=== PATIENT | female | born 1935 | race Two or more races ===

== ENCOUNTER 2019-03-19 13:30 | Inpatient (IN) | payer OTHER ==
[~2019-03-19] VITALS: Ht 152.4 cm; Wt 81.6 kg
[~2019-03-19 13:30] MED LIST: LIDODERM30 EA TP; MEDROL4 MG PO; ORPH100T PO; PERCOCET 5/3251 TAB PO
[2019-03-19] MEDS ORDERED: PEPCID20 MG (13:56)
[2019-03-19] MEDS ORDERED: SIMVASTATIN20 MG (13:57)
[2019-03-19] MEDS ORDERED: LOSARTAN POTASS50 MG (13:57)
[2019-03-19] MEDS ORDERED: CLOPIDOGREL BIS75 MG (13:57)
[2019-03-19] MEDS ORDERED: MAXIMUM D310000 UNIT (13:58)
[2019-03-19] MEDS ORDERED: FOSAMAX70 MG (13:58)
[2019-03-19] MEDS ORDERED: MELATONIN5 M1 (13:58)
[2019-03-19] MEDS ORDERED: GABAPENTIN100 MG (13:58)
[2019-03-19] MEDS ORDERED: VITAMIN B-121000 MCG (13:59)
[2019-03-19] MEDS ORDERED: REFRESH OPTIVE10 ML (13:59)
[2019-03-19] MEDS ORDERED: LUMIGAN2.5 M1 (14:00)
[2019-03-26] MEDS ORDERED: CLOPIDOGREL BIS75 MG PO (12:35)
[2019-03-26] MEDS ORDERED: LOSARTAN POTASS50 MG PO (12:36)
[2019-03-26] MEDS ORDERED: XOPENEX CO1.25 MG/0. IH (12:36)
[2019-03-26] MEDS ORDERED: GABAPENTIN100 MG PO (12:37)
[2019-03-26] MEDS ORDERED: SIMVASTATIN20 MG PO (12:37)
[2019-03-26] MEDS ORDERED: BUDESONIDE0.5 MG/2 M IH (12:37)
[2019-03-26] MEDS ORDERED: CARAFATE1 GM PO (12:38)
[2019-03-26] MEDS ORDERED: PANTOPRAZOLE SO40 MG PO (12:38)
[2019-03-26] MEDS ORDERED: PREDNISONE10 MG PO (12:40)
[2019-03-26] MEDS ORDERED: Neurin-Sl Tablet Sl SL (12:44)
[2019-03-27] MEDS ORDERED: PROTONIX40 MG (16:51)
== END 2019-03-26 16:24 | DRG 191 ==
LOC: ER 13:30 → MEDJ 03-20 00:47 → SEC-K 03-20 00:47 → MEDJ 03-20 14:44
PROVIDERS: ADMIT Internal Medicine
PROC: 3E0F7GC Introduction of Other Therapeutic Substance into Respiratory Tract, Via Natural or Artificial Opening (ICD-10-PCS; principal; 2019-03-20)
PROC: 4A033R1 Measurement of Arterial Saturation, Peripheral, Percutaneous Approach (ICD-10-PCS; 2019-03-25)
DX: J44.1 Chronic obstructive pulmonary disease with (acute) exacerbation (principal); J45.41 Moderate persistent asthma with (acute) exacerbation; N39.41 Urge incontinence; I10 Essential (primary) hypertension; I70.0 Atherosclerosis of aorta; R53.1 Weakness

== ENCOUNTER 2019-03-27 16:19 | Emergency (ER) | payer OTHER ==
[~2019-03-27] VITALS: Ht 152.4 cm; Wt 83.9 kg
[~2019-03-27 16:19] MED LIST changes: +BUDESONIDE0.5 MG/2 M IH; +CARAFATE1 GM PO; +CLOPIDOGREL BIS75 MG; +CLOPIDOGREL BIS75 MG PO; +FOSAMAX70 MG; +GABAPENTIN100 MG; +GABAPENTIN100 MG PO; +LOSARTAN POTASS50 MG; +LOSARTAN POTASS50 MG PO; +LUMIGAN2.5 M1; +MAXIMUM D310000 UNIT; +MELATONIN5 M1; +Neurin-Sl Tablet Sl SL; +PANTOPRAZOLE SO40 MG PO; +PEPCID20 MG; +PREDNISONE10 MG PO; +REFRESH OPTIVE10 ML; +SIMVASTATIN20 MG; +SIMVASTATIN20 MG PO; +VITAMIN B-121000 MCG; +XOPENEX CO1.25 MG/0. IH
[2019-03-27] MEDS ORDERED: PROTONIX40 MG (16:51)
== END 2019-03-27 23:50 | disposition home or self-care (01) ==
LOC: ER 16:19 → CPU-OBS 16:30 → ER 23:50
DX: J44.9 Chronic obstructive pulmonary disease, unspecified (principal); J90 Pleural effusion, not elsewhere classified; I70.0 Atherosclerosis of aorta; I11.9 Hypertensive heart disease without heart failure; N28.1 Cyst of kidney, acquired

== ENCOUNTER 2019-04-12 13:05 | Emergency (ER) | payer OTHER ==
[~2019-04-12] VITALS: Ht 165.1 cm; Wt 77.1 kg
[~2019-04-12 13:05] MED LIST changes: +PROTONIX40 MG
== END 2019-04-12 16:13 | disposition home or self-care (01) ==
LOC: ER 13:05
DX: R06.02 Shortness of breath (principal)

== ENCOUNTER 2019-05-14 19:06 | Emergency (ER) | payer OTHER | END 2019-05-15 12:27 | disposition home or self-care (01) | LOC: ER 19:06 | DX: I16.0 Hypertensive urgency (principal); I10 Essential (primary) hypertension; J44.9 Chronic obstructive pulmonary disease, unspecified; J45.998 Other asthma; I67.89 Other cerebrovascular disease; E86.0 Dehydration; R25.8 Other abnormal involuntary movements; R68.89 Other general symptoms and signs; R53.1 Weakness; Z77.22 Contact with and (suspected) exposure to environmental tobacco smoke (acute) (chronic) ==

== ENCOUNTER 2020-10-16 13:38 | Inpatient (IN) | payer OTHER ==
[~2020-10-16] VITALS: Ht 160 cm; Wt 95.3 kg
[2020-10-16] MEDS ORDERED: ALENDRONATE SOD70 MG PO (13:53)
[2020-10-16] MEDS ORDERED: PANTOPRAZOLE SO40 MG PO (13:53)
[2020-10-17] MEDS ORDERED: OMEPRAZOLE20 MG (14:43)
[2020-10-17] MEDS ORDERED: FAMOTIDINE20 MG (14:43)
[2020-10-17] MEDS ORDERED: SUCRALFATE1 GM (14:44)
[2020-10-17] MEDS ORDERED: ABANEU-SL TABL1 EACH (14:44)
== END 2020-10-24 13:30 | disposition home or self-care (01) | DRG 191 ==
LOC: ER 13:38 → MEDI 10-17 06:52
PROVIDERS: ADMIT Internal Medicine; ATTEND Internal Medicine
PROC: 3E0F73Z Introduction of Anti-inflammatory into Respiratory Tract, Via Natural or Artificial Opening (ICD-10-PCS; principal; 2020-10-17)
PROC: 3E0F7SF Introduction of Other Gas into Respiratory Tract, Via Natural or Artificial Opening (ICD-10-PCS; 2020-10-17)
PROC: 4A12X4Z Monitoring of Cardiac Electrical Activity, External Approach (ICD-10-PCS; 2020-10-17)
PROC: B24BYZZ Ultrasonography of Heart with Aorta using Other Contrast (ICD-10-PCS; 2020-10-17)
DX: J44.1 Chronic obstructive pulmonary disease with (acute) exacerbation (principal); J45.901 Unspecified asthma with (acute) exacerbation; J44.0 Chronic obstructive pulmonary disease with (acute) lower respiratory infection; J20.9 Acute bronchitis, unspecified; I10 Essential (primary) hypertension; Z20.822 Contact with and (suspected) exposure to COVID-19

== ENCOUNTER 2021-02-22 11:48 | Emergency (ER) | payer OTHER ==
[~2021-02-22] VITALS: Ht 152.4 cm; Wt 90.7 kg
[~2021-02-22 11:48] MED LIST changes: +ABANEU-SL TABL1 EACH; +ALENDRONATE SOD70 MG PO; +FAMOTIDINE20 MG; +OMEPRAZOLE20 MG; +SUCRALFATE1 GM
[2021-02-22] MEDS ORDERED: MEDROLPACK PO (17:12)
== END 2021-02-22 18:24 | disposition home or self-care (01) ==
LOC: ER 11:48
DX: R06.02 Shortness of breath (principal); Z03.818 Encounter for observation for suspected exposure to other biological agents ruled out